=== PATIENT | male | born 1995 | race Asian ===

== ENCOUNTER 2024-04-02 10:36 | Outpatient (CLI) | payer BC, SELFPAY | END 2024-04-02 10:37 | disposition home or self-care (01) | PROVIDERS: Visit Provider Physician Assistant Medical | DX: Z00.00 Encounter for general adult medical examination without abnormal findings (principal); Z13.6 Encounter for screening for cardiovascular disorders; Z13.1 Encounter for screening for diabetes mellitus | CPT/HCPCS: 80061; 82947 ==